=== PATIENT | male | born 1980 | race Two or more races ===

== ENCOUNTER 2019-02-20 23:12 | Emergency (ER) | payer OTHER ==
[~2019-02-20] VITALS: Ht 180.3 cm; Wt 65.8 kg
--- NOTE | 2019-02-20 23:22 | NUR ---
URINE COLLECTED AND SENT TO LAB
[2019-02-20 23:40] LABS: APPEARANCE,URINE Slightly Cloudy (CLEAR); BILIRUBIN,URINE Negative (NEGATIVE); BLOOD, URINE Negative Ery/uL (NEGATIVE); COLOR,URINE Yellow (YELLOW); KETONES,URINE Negative (NEGATIVE); LEUKOCYTE ESTERASE ,URINE Negative (NEGATIVE); NITRITE, URINE Negative (NEGATIVE); PH,URINE 5.5 (5.0-8.0); PROTEIN,URINE 30 mg/dl (NEGATIVE); UGLUCOSE Negative (NEGATIVE); UROBILINOGEN,URINE 0.2 EU/dL (0.2)
[2019-02-20 23:41] LABS: BASOPHILS # (AUTO) 0.2 /CMM (0.0-0.2); BASOPHILS % (AUTO) 1.3 % (0.0-2.0); EOSINOPHILS % (AUTO) 0.6 % (0.0-6.0); HEMATOCRIT 39 % (39-51); HEMOGLOBIN 12.6 g/dL (13.5-17.5); LYMPHOCYTES # (AUTO) 1.4 /CMM (0.8-4.8); LYMPHOCYTES % (AUTO) 8.9 % (20.0-44.0); MEAN CORPUSCULAR HGB CONC 33 g/dl (31.0-36.0); MEAN CORPUSCULAR VOLUME 91 fL (80-96); MONOCYTES # (AUTO) 0.9 /CMM (0.1-1.30); MONOCYTES % (AUTO) 5.7 % (2.0-12.0); NEUTROPHILS # (AUTO) 13.3 /CMM (1.8-8.9); NEUTROPHILS % (AUTO) 83.5 % (43.0-81.0); PLATELET COUNT (AUTO) 215 /CMM (150-450); RED BLOOD CELL COUNT(AUTO) 4.27 MIL/uL (4.5-6.0); WHITE BLOOD COUNT (AUTO) 15.9 K/uL (4.3-11.0)
[2019-02-20 23:52] LABS: CALCIUM, SERUM 9.8 mg/dL (8.5-10.1); CARBON DIOXIDE 28 mmol/L (21-32); CHLORIDE 104 mmol/L (98-107); CREATININE 0.8 mg/dL (0.6-1.3); GLUCOSE 87 mg/dL (74-106); POTASSIUM 4.1 mmol/L (3.5-5.1); SODIUM SERUM 143 mmol/L (136-145); UREA NITROGEN, BLOOD 19 mg/dL (7-18)
--- NOTE | 2019-02-21 00:05 | NUR ---
ADALI FROM STREET TO ER BED 12. AAOX3. NO RESP DISTRESS NOTED. AMBULATORY. CAME IN FOR SUICIDAL IDEATION WITH PLAN TO JUMP OFF A BUS OR SLIT HIS THROAT WITH A PIECE OF GLASS. PT REPORTS THAT HE IS ANXIOUS, DEPRESSED AND PARANOID. PT THINKS THAT EVERYBODY IS COMING TO GET HIM. PT ALSO REPORTS THAT HE HAVENT HAD HIS MEDS FOR AWHILE AND VOLUNTARILY COMMITTING HIMSELF FOR ADMISSION TO PSYCH FACILITY. PT ADMITS FOR DRINKING ALCOHOL AND METH USE EARLIER. PT REPORTS THAT HE IS HEARING VOICES TELLING HIM TO KILLS HIMSELF, NO VISUAL HALLUCINATION. PT STRIPPED OFF CLOTHING AND GOWN WITH BELONGAINGS KEPT IN THE LOCKER INSIDE THE UTILITY ROOM. SITTER AT BEDSIDE. MD WAS AT BEDSIDE FOR EVAL. ORDERS RECEIVED NOTED AND CARRIED OUT. WILL CONTINUE TO MONITOR.
[2019-02-21 00:06] LABS: ALANINE AMINOTRANSFERASE 35 U/L (12-78); ALBUMIN 4.5 g/dL (3.4-5.0); ALCOHOL, BLOOD 48 mg/dL (0-0); ALKALINE PHOSPHATASE 71 U/L (46-116); ASPARTATE AMINOTRANSFERASE 28 U/L (15-37); BILIRUBIN,DIRECT 0.2 mg/dL (0.0-0.2); BILIRUBIN,TOTAL 0.7 mg/dL (0.2-1.0); TOTAL PROTEIN, SERUM 8.6 g/dL (6.4-8.2)
[2019-02-21 00:07] LABS: ACETAMINOPHEN < 2 ug/ml (10-30); SALICYLATE 1.9 mg/dL (2.8-20.0)
--- NOTE | 2019-02-21 00:51 | NUR ---
CALLED [facility], NO BEDS AVAILABLE AT THIS TIME
--- NOTE | 2019-02-21 01:35 | NUR ---
Patient is resting comfortably in bed with eyes closed. Easily aroused.
--- NOTE | 2019-02-21 02:55 | NUR ---
Patient is resting comfortably in bed. Easily aroused. Drinking water.
--- NOTE | 2019-02-21 04:10 | NUR ---
Patient is resting comfortably in bed with eyes closed. Easily aroused.
--- NOTE | 2019-02-21 05:13 | NUR ---
Patient is resting comfortably in bed with eyes closed. Easily aroused.
--- NOTE | 2019-02-21 06:02 | NUR ---
[facility] NUMBER FOR REPORT: [phone] (AFTER [phone]) ACCEPTING MD: DR. OLIVAREZ REQUESTING TO SEND PT AFTER [phone]
--- NOTE | 2019-02-21 06:43 | NUR ---
CALLED [facility] FOR TRANSPORTATION. ETA [phone]
[2019-02-21] MEDS ORDERED: OLANZAPINE 5 MG TABLET ONE (08:50)
[2019-02-21] MEDS ORDERED: OLANZAPINE 5 MG TABLET PO ONE (09:00)
--- NOTE | 2019-02-21 09:00 | NUR ---
PT REFUSING ADMISSION TO [facility] AND WANTS TO BE DISCHARGED AND VERBALIZING HE IS NOT SUICIDAL ANYMORE, AWARE.
--- NOTE | 2019-02-21 09:00 | NUR ---
Patient given written and verbal discharge instructions. Patient verbalizes understanding of instructions. Patient is ambulatory with steady gait. Refuses offer of residential placement. Patient given list of available shelters in surrounding area.
[2019-02-21 09:24] VITALS: BP 119/72
== END 2019-02-21 09:27 | disposition home or self-care (01) ==
LOC: ER 23:15
DX: R45.851 Suicidal ideations (principal); F10.10 Alcohol abuse, uncomplicated; F17.200 Nicotine dependence, unspecified, uncomplicated; Y90.2 Blood alcohol level of 40-59 mg/100 ml
CPT/HCPCS: 36415; 80048; 80076; 80305; 80307; 80329; 81001; 85025; 99284; G0480; 81000-TC

== ENCOUNTER 2019-02-21 16:43 | Emergency (ER) | payer OTHER ==
[~2019-02-21] VITALS: Ht 180.3 cm; Wt 61.2 kg
--- NOTE | 2019-02-21 16:45 | NUR ---
KAMERON contacted Bandar at [facility] regarding bed availability. Per Bandar they will have a bed for the pt. Pt. was accepted to [facility] this AM, however pt. decided he didn't want to go and left. Pt. is now back stating he is suicidal and is seeking voluntary admission to [facility].
--- NOTE | 2019-02-21 17:02 | NUR ---
BIBRA FROM STREETS, "I FEEL LIKE KILLING MYSELF." + PLAN LAY IN FRONT OF TRAFFIC. AAOX3, VSS. DENIES ANY OTHER DISCOMFORT @ THIS TIME. PT CALM & COOPERATIVE, AWAITING EVAL BY SHAZIA/PA. SITTER @ BS & WILL CONT TO MONITOR.
[2019-02-21 17:32] LABS: BASOPHILS # (AUTO) 0.1 /CMM (0.0-0.2); BASOPHILS % (AUTO) 0.8 % (0.0-2.0); EOSINOPHILS % (AUTO) 0.4 % (0.0-6.0); HEMATOCRIT 38 % (39-51); HEMOGLOBIN 12.3 g/dL (13.5-17.5); LYMPHOCYTES # (AUTO) 1.5 /CMM (0.8-4.8); MEAN CORPUSCULAR HGB CONC 33 g/dl (31.0-36.0); MEAN CORPUSCULAR VOLUME 90 fL (80-96); MONOCYTES % (AUTO) 11.5 % (2.0-12.0); NEUTROPHILS % (AUTO) 70.3 % (43.0-81.0); PLATELET COUNT (AUTO) 191 /CMM (150-450); RED BLOOD CELL COUNT(AUTO) 4.17 MIL/uL (4.5-6.0); WHITE BLOOD COUNT (AUTO) 8.6 K/uL (4.3-11.0)
[2019-02-21 17:38] LABS: APPEARANCE,URINE Clear (CLEAR); BILIRUBIN,URINE SMALL (NEGATIVE); BLOOD, URINE Negative Ery/uL (NEGATIVE); COLOR,URINE Yellow (YELLOW); KETONES,URINE 15 (NEGATIVE); LEUKOCYTE ESTERASE ,URINE Negative (NEGATIVE); NITRITE, URINE Negative (NEGATIVE); PH,URINE 5.5 (5.0-8.0); PROTEIN,URINE 30 mg/dl (NEGATIVE); UGLUCOSE Negative (NEGATIVE)
[2019-02-21 17:41] LABS: BACTERIA,URINE None seen /HPF (None Seen); RBC,URINE 0-2 /HPF (0-2); SQUAMOUS EPITHELIAL CELL,UR Few /HPF (None Seen); WBC,URINE 0-2 /HPF (0-3)
[2019-02-21 17:51] LABS: CALCIUM, SERUM 9.5 mg/dL (8.5-10.1); CARBON DIOXIDE 27 mmol/L (21-32); CHLORIDE 104 mmol/L (98-107); CREATININE 0.9 mg/dL (0.6-1.3); GLUCOSE 88 mg/dL (74-106); POTASSIUM 3.8 mmol/L (3.5-5.1); SODIUM SERUM 142 mmol/L (136-145); UREA NITROGEN, BLOOD 23 mg/dL (7-18)
[2019-02-21 17:57] LABS: ALANINE AMINOTRANSFERASE 36 U/L (12-78); ALCOHOL, BLOOD < 3 mg/dL (0-0); ALKALINE PHOSPHATASE 69 U/L (46-116); ASPARTATE AMINOTRANSFERASE 29 U/L (15-37); BILIRUBIN,DIRECT 0.2 mg/dL (0.0-0.2); BILIRUBIN,TOTAL 0.8 mg/dL (0.2-1.0); TOTAL PROTEIN, SERUM 7.9 g/dL (6.4-8.2)
--- NOTE | 2019-02-21 19:15 | NUR ---
Patient is resting comfortably in bed with eyes closed. Easily aroused. VSS
--- NOTE | 2019-02-21 21:00 | NUR ---
CALLED [facility] FOR ADMISSION FOLLOW UP, PER CM STILL REVIEWING CHART.
--- NOTE | 2019-02-21 21:41 | NUR ---
CALLED [facility] [phone] SPOKE TO SANJUANITA, WILL HAVE CM CALL BACK FOR UPDATE.
--- NOTE | 2019-02-21 21:46 | NUR ---
FAXED PT CLINICALS REQUESTER PER FÁTIMA GANN
--- NOTE | 2019-02-21 22:08 | NUR ---
NUMBER FOR REPORT UNIT TWO ADMITTING PHYSCIAN DR RUBALCAVA
--- NOTE | 2019-02-21 22:12 | NUR ---
[facility] ETA [phone] [facility] [id number]
[2019-02-21 22:45] VITALS: BP 112/76
--- NOTE | 2019-02-21 22:46 | NUR ---
REPORT GIVEN TO CAITLIN GABRIEL @ [facility] FOR [facility]. PT EN ROUTE VIA BLS BY AMITA.
== END 2019-02-21 22:48 ==
LOC: ER 16:49
DX: R45.851 Suicidal ideations (principal); F15.90 Other stimulant use, unspecified, uncomplicated; F10.10 Alcohol abuse, uncomplicated; F17.200 Nicotine dependence, unspecified, uncomplicated; F12.10 Cannabis abuse, uncomplicated; Y90.0 Blood alcohol level of less than 20 mg/100 ml; Z60.2 Problems related to living alone
CPT/HCPCS: 36415; 80048-TC; 80076-TC; 80305; 81000-TC; 85025-TC; G0480